=== PATIENT | female | born 1960 | race Caucasian/White ===

== ENCOUNTER 2016-03-28 23:49 | Observation (INO) ==
[2016-03-29] MEDS ORDERED: ONDANSETRON 4 MG/2 ML VIAL IV STA (00:35)
[2016-03-29] MEDS ORDERED: LEVOFLOXACIN INJ 750 MG in PREMIX 1 EACH IV STA (00:35)
[2016-03-29] MEDS ORDERED: SODIUM CHLORIDE 0.9% 1,000 ML IV STA (00:35)
[2016-03-29] MEDS ORDERED: PANTOPRAZOLE 40 MG VIAL IV STA (00:35)
[2016-03-29] MEDS ORDERED: PANTOPRAZOLE 40 MG VIAL IV ONE (00:46)
[2016-03-29] MEDS ORDERED: LEVOFLOXACIN INJ 150 ML IV ONE (00:46)
[2016-03-29] MEDS ORDERED: ONDANSETRON 4 MG/2 ML VIAL ONE ×3 (00:46→13:23)
[2016-03-29 00:51] LABS: Basophils % 0.5 % (0.0-0.8); Eosinophils # 0.1 10*3/uL (0.0-0.87); Eosinophils % 1.1 % (0.00-10.9); Hematocrit 41.5 VOL% (35.7-47.0); Hemoglobin 13.9 GM/DL (12.0-16.0); Immature Granulocytes % 0.2 %; Immature Granulocytes Absolute 0.02 #; Lymphocytes # 2.5 10*3/uL (1.4-4.0); Mean Corpuscular HGB Conc 33.5 GM/DL (32-36); Mean Corpuscular Hemoglobin 30 PG (27-34); Mean Corpuscular Volume 90.8 FL (87-102); Mean Platelet Volume 10.8 FL (9.6-12.0); Monocytes # 0.5 10*3/uL (0.11-0.8); Monocytes % 5.3 % (1.7-12.7); Neutrophils # 5.5 10*3/uL (1.4-7.4); Neutrophils % 63.9 % (38.7-73.9); Platelet Count 228 10*3/uL (130-400); Red Blood Count 4.57 10*6/uL (3.8-5.5); Red Cell Distribution Width 12.5 % (9.3-17.3); White Blood Count 8.5 10*3/uL (4.5-13.71)
[2016-03-29 01:08] LABS: Apearance,Urine Clear (Clear); Urine Color Yellow (Yellow)
[2016-03-29 01:09] LABS: Bilirubin,Urine 2+ mg/dL (Negative); Glucose,Urine (UA) Negative (Negative); Ketones,Urine 25 mg/dL (Negative); Nitrite,Urine Negative (Negative); Protein,Urine 30 MG/DL
[2016-03-29 01:10] LABS: Blood, Urine 50 mg/dL (Negative)
[2016-03-29 01:16] LABS: Alanine Aminotransferase 27 U/L (13-56); Albumin 4.3 G/DL (3.4-5.0); Alkaline Phosphatase 67 U/L (45-117); Amylase 107 U/L (25-115); Aspartate Amino Transferase 17 U/L (0-37); Bilirubin,Total < 0.39 MG/DL (0.2-1.0); Blood Urea Nitrogen 13 MG/DL (7-18); Calcium 9.4 MG/DL (8.5-10.1); Glucose 107 MG/DL (74-106); Osmolality,Calculated 287.7 MOS/KG (273-304); Sodium 145 MMOL/L (136-145); Total Protein 7.6 G/DL (6.4-8.3); Troponin I Only < 0.015 NG/ML (0.00-0.045)
--- NOTE | 2016-03-29 01:41 | Emergency Department Note ---
Arrival - Arrival ED Nursing Triage Note: pt presented to triage ambulatory with c/o intermittent N/V and RUQ pain x 2 weeks. pain worse at night. denies fever. Mode of Arrival: Ambulatory Limitations: No Limitations Source: Patient - History of Present Illness Onset (ago): week(s) (H presents to weeks post onset of symptoms) Date of Last Menstrual Period: menapause <Roman Lockwood - Last Filed: 03/29/16 01:39> <Angelique Le - Last Filed: 03/29/16 04:28> - Arrival Chief Complaint: Abdominal / Flank Pain Stated Complaint: stomach pain, and vomitting Time Seen by Provider: 03/29/16 00:35 - History of Present Illness HPI Narrative: This 56-year-old white female presents with a history of 2 weeks of recurrent nausea, vomiting, right upper quadrant pain, and midepigastric pain. She states the attacks are primarily at night and have not been associated with chills or fever. The patient denies any history of peptic ulcer disease, gallbladder disease, IBS, or pancreatitis. Currently she presents holding an emesis bag very nauseated. (Roman Lockwood) Allergies/Adverse Reactions: Allergies Allergy/AdvReac Type Severity Reaction Status Date / Time No Known Allergies Allergy Verified 03/29/16 00:16 Home Medications: Home Medications Medication Instructions Recorded Confirmed Type Celecoxib 50 tablet PO BEDTIME 11/06/15 03/29/16 History Citalopram [CeleXA] 1 tablet PO DAILY 11/06/15 03/29/16 History metFORMIN [Glucophage] 1,000 mg PO BID W/MEALS 11/06/15 03/29/16 History Review of System - Review of System 12 point system: reviewed and no additional remarkable complaints except as stated - Review of System Constitutional: Present: as per HPI Gastrointestinal: Present: as per HPI <Roman Lockwood - Last Filed: 03/29/16 01:39> Medical,Surgical,& Family Hx - Medical History Cardio: History of: Hypertension Neurology: History of: Cerebrovascular Accident (2016) Endocrine: History of: Diabetes Mellitus (NIDDM) Musculoskeletal: History of: Back/Neck Problems (herinated disc) - Surgical History HEENT Surgeries: Surgical HX of: Eye Surgery (RT & Lt EYE CATARACT SURGERY) Reproductive Surgeries: Surgical HX of;: Section - Social History Smoking Status: Current every day smoker Frequency of Alcohol Use: None Type of Drug Use: None <Roman Lockwood - Last Filed: 03/29/16 01:39> Exam <Roman Lockwood - Last Filed: 03/29/16 01:39> <Angelique Le - Last Filed: 03/29/16 04:28> Physical Examination: GENERAL: Well developed, well nourished white female holding an emesis bag in no acute distress. HEENT: Normocephalic. No trauma. Moist mucous membranes. EOMI. PERRLA. ENT clear NECK: Supple. No adenopathy. CARDIAC: Regular. No murmurs. Heart rate 100 CHEST: Clear to auscultation. No respiratory distress. O2 sat 99% ABDOMEN: Soft. Tender right upper quadrant and midepigastric areas. hypoactive Bowel sounds. EXTREMITIES: No trauma. Normal ROM. No pedal edema. SKIN: No diaphoresis. No rash. NEURO: Alert. Neuro intact. No focal deficits. (Roman Lockwood) Vital Signs: Vital Signs Temperature 98.3 F 03/29/16 00:09 Pulse Rate 100 H 03/29/16 00:09 Respiratory Rate 20 03/29/16 00:09 Blood Pressure 148/94 03/29/16 00:09 O2 Sat by Pulse Oximetry 99 03/29/16 00:09 (Roman Lockwood) (Angelique Le) Course <Roman Lockwood - Last Filed: 03/29/16 01:39> - Consultations Time: 04:27 <Angelique Le - Last Filed: 03/29/16 04:28> Course Narrative: discussed results with patient and Dr. Hewitt who is offering to admit her and do surgery today or see her Tuesday in the office - she will stay tonight. ( Angelique Le) - Consultations Consultation #1: Dr. Hewitt (Angelique Le) Results - Labs CBC & BMP: 03/29/16 00:33 03/29/16 00:33 <Roman Lockwood - Last Filed: 03/29/16 01:39> - Labs CBC & BMP: 03/29/16 00:33 03/29/16 00:33 - Diagnostic Findings Procedure: Ultrasound: report reviewed by me (acute cholecystits) <Angelique Le - Last Filed: 03/29/16 04:28> - Labs Labs: I have reviewed the laboratory noted the grossly normal results. I have likewise noted evidence of cystitis on urinalysis. (Roman Lockwood) Disposition <Roman Lockwood - Last Filed: 03/29/16 01:39> Case discussed with: patient, patient's family Time of Disposition: 04:28 <Angelique Le - Last Filed: 03/29/16 04:28> Clinical Impression: Acute cholecystitis Disposition: Still a Patient Condition: Stable
[2016-03-29] MEDS ORDERED: HYDROmorphone 2 MG/1 ML VIAL IV PRN (04:29)
[2016-03-29] MEDS ORDERED: ONDANSETRON 4 MG/2 ML VIAL IV PRN ×2 (04:29→13:40)
[2016-03-29] MEDS: SODIUM CHLORIDE 0.9% 1,000 ML IV SCH ×2 (05:30→13:36)
[2016-03-29] MEDS ORDERED: LACTATED RINGERS 1,000 ML IV SCH (06:00)
--- NOTE | 2016-03-29 06:34 | Ultrasound Report ---
Referring Physician: Roman Lockwood Exam: US abdomen limited Date: March 29, 2016 Reason: Right upper quadrant abdominal pain Comparison: Gallbladder ultrasound June 07, 2007 Preliminary report was provided by [facility]. Technique: Grayscale ultrasound images of the right upper quadrant were obtained. Ultrasound images were captured and stored. Findings: The liver measures 12.7 cm in length. The liver parenchyma is mildly echogenic and heterogeneous, suggesting mild fatty liver infiltration/hepatic steatosis. However, cirrhosis could have a similar appearance. No focal suspicious hepatic lesion is identified. There is echogenic material within the gallbladder, suggesting gallbladder sludge and stones. A stone at the gallbladder neck measures 1.5 cm. The gallbladder wall is also mildly prominent, and there may be trace pericholecystic fluid. The fabric machine operator reports a positive sonographic Souza's sign. These findings suggest acute cholecystitis. The common bile duct is normal in size, measuring 0.3-0.4 cm in diameter. The pancreas is largely obscured by bowel gas. The right kidney measures 11.2 x 4.1 x 4.0 cm. No right hydronephrosis or suspicious renal lesion is identified. No ascites is seen. Impression: 1. Gallbladder sludge and gallstones are present. There is also mild thickening of the gallbladder wall and possible trace pericholecystic fluid. In addition, the fabric machine operator reports a positive sonographic Souza's sign. These findings suggest acute cholecystitis. 2. The liver parenchyma is slightly echogenic and heterogeneous. This suggests mild fatty liver infiltration/hepatic steatosis, but cirrhosis could have a similar appearance. The ordering physician is aware of the findings. This is a critical test PROCEDURE INTERPRETED AT [facility] DEPARTMENT OF RADIOLOGY Final Report Signed by: Dr. Mo Francis
[2016-03-29] MEDS ORDERED: FAMOTIDINE 20 MG TABLET PO ONE (07:45)
--- NOTE | 2016-03-29 08:04 | EKG Report ---
Stationary ECG Study [facility] Test Date: 03/29/2016 8:02:57 AM Pat Name: DORIS NEAL Department: Room: 342 Gender: F [employer]: : 1960 Requested by: Stone Merino Order Number: [id number] Reading MD: ANETA GILLIS Intervals [place] Rate: 75 P: 63 AK: 165 QRS: 92 QRSD: 105 T: 55 QT: 393 QTc: 422 Interpretive Statements SINUS RHYTHM BORDERLINE RIGHT AXIS DEVIATION INCOMPLETE RIGHT BUNDLE BRANCH BLOCK Electronically Signed On 03-29-16 12:37:35 ROCKET ENGINE TESTER by ANETA GILLIS [email or web address]
[2016-03-29] MEDS ORDERED: LIDOCAINE 1%/EPI INJ 20 ML VIAL ONE (09:03)
[2016-03-29] MEDS ORDERED: TISSUE ADHESIVE 1 EACH APPLICATOR TOP ONE (09:03)
--- NOTE | 2016-03-29 11:43 | General Surg History&Physical ---
Assessment and Plan (1) Acute cholecystitis Status: Acute Assessment and plan: This patient has acute cholecystitis. I recommended laparoscopic cholecystectomy. She has no indications for a selective cholangiogram. I have discussed the risks, benefits, and alternatives of the operation with the patient, and expected outcomes have been reviewed. The patient would like to proceed with the operation. This note reflects in a counter had with the patient at 8 a.m. on 03/29/2016. Current Visit: Yes History of Present Illness Chief complaint: abdominal pain History of present illness: Ms. Kyle is a 56 year old female who was admitted to the hospital with 2 weeks of worsening right upper quadrant pain that radiates through to the back but acutely worsened last night around 11 p.m. She presented to the ER with nausea and vomiting as well and was diagnosed with cholecystitis based on her symptoms and her time of duration of symptoms as well as imaging findings. She had ultrasound that showed wall thickening with normal size, bile duct and her labs were normal. Home Medications Medication Instructions Recorded Confirmed Type Celecoxib 50 tablet PO BEDTIME 11/06/15 03/29/16 History Citalopram [CeleXA] 1 tablet PO DAILY 11/06/15 03/29/16 History metFORMIN [Glucophage] 1,000 mg PO BID W/MEALS 11/06/15 03/29/16 History Allergies Allergy/AdvReac Type Severity Reaction Status Date / Time No Known Allergies Allergy Verified 03/29/16 00:16 Medical,Surgical,& Family Hx - Medical History Cardio: History of: Hypertension Neurology: History of: Cerebrovascular Accident (2016) Endocrine: History of: Diabetes Mellitus (NIDDM) Gastrointestinal: History of: GI Problems (current abdominal pain) Musculoskeletal: History of: Back/Neck Problems (herniated disc) Hematology: History of: Anemia - Surgical History HEENT Surgeries: Surgical HX of: Eye Surgery (RT & Lt EYE CATARACT SURGERY) Reproductive Surgeries: Surgical HX of;: Section (twice) - Family History Family History: Reports;: Family Cancer (mother), Family Diabetes (sister, grandfather), Family Hypertension ("whole family"), Family Stroke (grandmother) - Social History Smoking Status: Current every day smoker Frequency of Alcohol Use: None Type of Drug Use: None Exam - Constitutional Vitals: Period Temp Pulse Resp BP Sys/[place] Pulse Ox Last 24 Hr 97.0 F-98.4 F 78-94 18-20 123-163/71-82 96-98 General appearance: no acute distress, over weight - Head Head exam: Present: normal inspection, normocephalic - Eye Eye exam: Present: EOMI. Absent: scleral icterus Pupils: Present: ANCELMO - ENT ENT exam: Present: normal exam Mouth exam: Present: normal external inspection, normal voice - Neck Neck exam: Present: normal inspection, trachea midline - Respiratory Respiratory exam: Present: clear to auscultation bilaterally. Absent: accessory muscle use, chest wall tenderness - Cardiovascular Cardiovascular exam: Present: RRR. Absent: systolic murmur, tachycardia - GI/Abdominal GI/Abdominal exam: Present: Souza's sign, soft. Absent: tenderness, rebound - Extremities Exam Extremities exam: Present: normal inspection, normal capillary refill - Back Exam Back exam: Present: normal inspection - Neurological Exam Neurological exam: Present: alert, oriented X3 Speech: Present: normal - Skin Skin exam: Present: normal color, warm - Constitutional Constitutional: Present: as per HPI - EENT Nose, mouth and throat: Present: as per HPI - Cardiovascular Cardiovascular: Present: as per HPI - Respiratory Respiratory: Present: as per HPI - Gastrointestinal Gastrointestinal: Present: as per HPI - Genitourinary Genitourinary: Present: as per HPI - Musculoskeletal Musculoskeletal: Present: as per HPI - Neurological Neurological: Present: as per HPI - Endocrine Endocrine: Present: as per HPI Hematologic/Lymphatic: Present: as per HPI Quality Measures - Stroke Onset of Symptoms Date: 10/29/14 Results - Labs CBC & BMP: 03/29/16 00:33 03/29/16 00:33 - Diagnostic Findings Procedure: Ultrasound: report reviewed by me
[2016-03-29] MEDS ORDERED: ROPIVACAINE 0.5% 30 ML VIAL ONE (12:32)
[2016-03-29] MEDS ORDERED: DEXTROSE 50% 25 GM/50 ML VIAL IV PRN (12:40)
[2016-03-29] MEDS ORDERED: PROMETHAZINE 25 MG/1 ML VIAL IM PRN (12:40)
[2016-03-29] MEDS ORDERED: GLUCAGON 1 MG VIAL IM PRN (12:40)
--- NOTE | 2016-03-29 12:41 | Operative Note ---
Date of procedure: 03/29/16 Pre-op diagnosis: acute cholecystitis Post-op diagnosis: same Procedure: Preoperative diagnosis Acute cholecystitis Postoperative diagnosis Same Procedures performed Laparoscopic cholecystectomy Findings Acute inflammation the gallbladder was present. The critical view of safety was obtained prior clips on the cystic duct and cystic artery. Complications None apparent Specimens Gallbladder Anesthesia GETA Blood loss 10 mL Indications Acute cholecystitis. No indications for a selective cholangiogram. Description of procedure The patient was taken to the operating room and transferred to the operating table in the supine position. Pressure points were padded and SCDs were placed bilateral lower extremities. General endotracheal anesthesia was administered. The abdomen was prepped chlorhexidine and draped sterilely. Preoperative antibiotics were administered, and a timeout was performed. The abdomen was entered in a supraumbilical location of the Veress needle. A 5 mm skin incision was made after local anesthetic was administered and a penetrating towel clip was used to grasp the umbilical stalk. A Veress needle was used to enter the peritoneal cavity and aspiration was negative. Saline drop test confirmed intracranial location. The abdomen was insufflated to 15 mmHg with an initial insufflation pressure of 5 mmHg. The Veress needle was removed and a 5 mm trocar was placed blindly. Laparoscopy was performed. There is no evidence of Veress needle or trocar injury. The patient was placed in reverse Trendelenburg and left side rolled up position. After local anesthetic was administered, an 11 mm midepigastric trocar and 2 right subcostal 5 mm trochars were placed. The gallbladder was grasped at the fundus and infundibulum after the patient was placed in reverse Trendelenburg and left side rolled up position. There was acute inflammation of the gallbladder and there is a stone at the neck of the gallbladder that was palpated and seen laparoscopically. The cystic plate peritoneum was dissected until the critical view of safety was obtained. The cystic duct and cystic artery were clipped twice centrally and once laterally and divided laparoscopically with scissors between clips. The gallbladder was removed in the gallbladder fossa using the hook electrocautery. The gallbladder was placed in a retrieval bag and removed through the midepigastric trocar with no significant fascial extension. There is a small amount of bleeding from the liver bed and a piece of Surgicel was placed bleeding stopped with minimal pressure held. The abdomen was suction irrigated locally and the area was reinspected and was hemostatic with decreased insufflation. The abdomen was then evacuated of all CO2 and the trochars were removed. The skin incisions are closed with 4-0 Monocryl sterile skin glue was placed. The patient was awakened from anesthesia and transferred to recovery. Postoperative plan Reason diet and discharge planning Anesthesia: IVIS, local Surgeon / Physician: Mark Hewitt Estimated blood loss: minimal (10 mL) Specimens: other (gallbladder) Condition: stable Disposition: PACU Results - Labs CBC & BMP: 03/29/16 00:33 03/29/16 00:33 Discharge Plan - Discharge Medications No Action Citalopram [CeleXA] 1 tablet PO DAILY metFORMIN [Glucophage] 1,000 mg PO BID W/MEALS Celecoxib 50 tablet PO BEDTIME - Follow Up or Referral - Forms/Instructions
[2016-03-29] MEDS ORDERED: PROPOFOL 200 MG/20 ML VIAL IV ONE (13:19)
[2016-03-29] MEDS ORDERED: SEVOFLURANE 1 UNIT/15 MINUTE INH ONE (13:20)
[2016-03-29] MEDS ORDERED: ACETAMINOPHEN 1,000 MG/100 ML VIAL IV ONE (13:21)
[2016-03-29] MEDS ORDERED: GLYCOPYRROLATE 0.4 MG/2 ML VIAL ONE (13:21)
[2016-03-29] MEDS ORDERED: NEOSTIGMINE 10 MG/10 ML VIAL ONE (13:21)
[2016-03-29] MEDS ORDERED: MIDAZOLAM 2 MG/2 ML VIAL ONE (13:21)
[2016-03-29] MEDS ORDERED: LACTATED RINGERS 1,000 ML IV ONE (13:22)
[2016-03-29] MEDS ORDERED: ROCURONIUM 100 MG/10 ML VIAL IV ONE (13:22)
[2016-03-29] MEDS ORDERED: HYDROmorphone 2 MG/1 ML VIAL ONE (13:23)
[2016-03-29] MEDS: HYDROmorphone 2 MG/1 ML VIAL IV PRN ×5 (13:26→20:56)
--- NOTE | 2016-03-29 13:32 | Anesthesia ---
Anesthesia Post OP - Post Ansesthetic Evaluation Patient seen in post op: Yes Resp: within normal limits CV: within normal limits Mental: within normal limits Temp: within normal limits [id number]: within normal limits Nausea and Vomiting: within normal limits Pain: within normal limits
[2016-03-29] MEDS: ONDANSETRON 4 MG/2 ML VIAL IV PRN ×2 (15:03→20:56)
[2016-03-29] MEDS: LACTATED RINGERS 1,000 ML IV SCH ×2 (15:03→20:54)
[2016-03-29] MEDS: INSULIN REGULAR 100 UNIT/ML SUBCUT SCH ×2 (16:44→23:06)
[2016-03-30] MEDS: ONDANSETRON 4 MG/2 ML VIAL IV PRN (02:46)
[2016-03-30] MEDS: HYDROmorphone 2 MG/1 ML VIAL IV PRN (02:51)
[2016-03-30 05:41] LABS: Hematocrit 36.3 VOL% (35.7-47.0)
[2016-03-30 05:50] LABS: Hemoglobin 11.6 GM/DL (12.0-16.0)
[2016-03-30] MEDS: ENOXAPARIN 40 MG/0.4 ML SYRINGE SUBCUT SCH (06:58)
[2016-03-30] MEDS: LACTATED RINGERS 1,000 ML IV SCH ×2 (08:04→12:10)
[2016-03-30] MEDS: INSULIN REGULAR 100 UNIT/ML SUBCUT SCH ×4 (08:49→22:26)
[2016-03-30] MEDS: CITALOPRAM 20 MG TABLET PO SCH (09:32)
--- NOTE | 2016-03-30 11:30 | Event Note ---
General Surgery Progress Note Chief complaint This patient is a 56-year-old woman who is admitted with acute cholecystitis treated with laparoscopic cholecystectomy on 03/29/2016 Interval history The patient had a bad night last night with bad nausea and abdominal pain and the extraction site in the midepigastrium. She has not been able to keep any food down yet. Physical exam Afebrile with normal vital signs Abdominal exam is expected postoperative tenderness Labs Hemoglobin 11.3 Assessment and plan We will increased the nausea regimen and try to get the patient tolerated some oral [place]. Continue current pain regimen Increase activity and out of bed in the hallway Repeat labs tomorrow and continue IV fluids for now
--- NOTE | 2016-03-30 11:49 | Pathology Report from [facility] ---
ACCESSION # : [id number] PATIENT NAME : Doris Kyle ORDERING DR : Mark Hewitt MD CLINICAL HX: Acute cholecystitis POST-OP DX: Same SPECIMEN INFO: Gallbladder GROSS DESCRIPTION: The specimen is received in formalin labeled with the patient 's name and consists of an intact gallbladder measuring 7.0 x 3.0 cm. The serosa is smooth, shields-pink. The wall averages 0.3 cm in thickness. The serosa is smooth, pink-[place]ri[place]. The lumen contains brown mucoid bile with a few brown black stones seen measuring up to 1.5 cm. Pin Maker sections submitted in one cassette. DIAGNOSIS FOR DORIS KYLE: GALLBLADDER: Chronic cholecystitis. Cholelithiasis. No evidence of malignancy. SERVICE DATE: 03/29/2016 REPORT DATE: 03/30/2016 PATHOLOGIST: Tisha Duncan III, M.D. MTDD
[2016-03-31] MEDS: LACTATED RINGERS 1,000 ML IV SCH ×2 (03:12→06:18)
[2016-03-31 04:38] LABS: Basophils % 0.2 % (0.0-0.8); Eosinophils % 0.6 % (0.00-10.9); Hematocrit 35.1 VOL% (35.7-47.0); Hemoglobin 11.7 GM/DL (12.0-16.0); Immature Granulocytes % 0.2 %; Immature Granulocytes Absolute 0.01 #; Lymphocytes # 2.2 10*3/uL (1.4-4.0); Lymphocytes % 42.4 % (21.3-54.2); Mean Corpuscular HGB Conc 33.3 GM/DL (32-36); Mean Corpuscular Hemoglobin 30 PG (27-34); Mean Corpuscular Volume 91.2 FL (87-102); Mean Platelet Volume 11.1 FL (9.6-12.0); Monocytes # 0.3 10*3/uL (0.11-0.8); Neutrophils # 2.6 10*3/uL (1.4-7.4); Neutrophils % 50.6 % (38.7-73.9); Platelet Count 165 T/CUMM (130-400); Red Blood Count 3.85 MC/CUMM (3.8-5.5); Red Cell Distribution Width 12.8 % (9.3-17.3); White Blood Count 5.2 T/CUMM (4-12)
[2016-03-31 05:13] LABS: Albumin 3.2 G/DL (3.4-5.0); Bilirubin,Total 0.6 MG/DL (0.2-1.0); Calcium 8.7 MG/DL (8.5-10.1); Osmolality,Calculated 286.6 MOS/KG (273-304); Potassium 3.6 MMOL/L (3.5-5.1); Total Protein 5.7 G/DL (6.4-8.3)
[2016-03-31] MEDS: ENOXAPARIN 40 MG/0.4 ML SYRINGE SUBCUT SCH (06:16)
--- NOTE | 2016-03-31 07:23 | Discharge Summary ---
Hospital Course - Hospital Course Hospital Course: This patient was admitted with acute cholecystitis through the ER and she was taken to the operating room on 03/29/2016 for laparoscopic cholecystectomy. She did well postoperatively but was kept 1 extra day due to some fairly severe nausea and pain. Her labs were rechecked and everything appeared stable. She was discharged home on postoperative day 2 in good condition. She was tolerating her diet and her pain was well-controlled. I'll see her back in 2 weeks in clinic. Diagnosis - Discharge Diagnosis (1) Acute cholecystitis Status: Acute Specialty Discharge - Follow Up or Referrals Follow up with: Mark Hewitt MD [Physician] - 2 Weeks Discharge Plan - Discharge Data Disposition: Disch To Home/Self Care Condition at Discharge: Stable Discharge Diet: advance to your usual diet Activity: no lifting Hygiene: may shower Weight Bearing at Discharge: weight bear as tolerated Driving: not until seen by doctor Contact your physician if you experience:: fever over 101, Difficulty voiding, Redness or swelling, Nausea/Vomiting, Shortness of breath, Bleeding, pain uncontrolled by pain medications - Discharge Medications New HYDROcodone/ACETAMIN 7.5-325 [[place] 7.5-325] 1 tablet PO Q4H PRN #45 tablet PRN Reason: Pain Moderate (4-7) Continue Citalopram [CeleXA] 1 tablet PO DAILY Discontinued metFORMIN [Glucophage] 1,000 mg PO BID W/MEALS Celecoxib 50 tablet PO BEDTIME - Follow Up or Referral Follow Up: Mark Hewitt MD [Physician] - 2 Weeks - Forms/Instructions Instructions: Laparoscopic Cholecystectomy (DC) Exam - Constitutional Vitals: Period Temp Pulse Resp BP Sys/[place] Pulse Ox Last 24 Hr 97.7 F-99.1 F 88-108 17-19 140-163/67-84 93-97 General appearance: no acute distress, over weight - Head Head exam: Present: normal inspection, normocephalic - Eye Eye exam: Present: EOMI. Absent: conjunctival injection Pupils: Present: ANCELMO - ENT ENT exam: Present: normal exam - Neck Neck exam: Present: normal inspection - Respiratory Respiratory exam: Present: clear to auscultation bilaterally. Absent: accessory muscle use, chest wall tenderness - Cardiovascular Cardiovascular exam: Present: regular rate and rhythm. Absent: systolic murmur , tachycardia - GI/Abdominal GI/Abdominal exam: Present: tenderness (appropriate post-operative tenderness on exam), soft - Extremities Exam Extremities exam: Present: normal inspection, normal capillary refill - Back Exam Back exam: Present: normal inspection - Neurological Exam Neurological exam: Present: alert, oriented X3 - Psychiatric Psychiatric exam: Present: normal affect, normal mood - Skin Skin exam: Present: normal color, warm Discharge Results Labs on day of discharge: Labs from last 24 hours 03/31/16 03/31/16 03/30/16 03:48 03:48 08:47 WBC 5.2 D RBC 3.85 Hgb 11.7 L Hct 35.1 L MCV 91.2 MCH 30 MCHC 33.3 RDW 12.8 Plt Count 165 D MPV 11.1 Neut % (Auto) 50.6 Lymph % (Auto) 42.4 [place] % (Auto) 6.0 Eos % (Auto) 0.6 Baso % (Auto) 0.2 Neut # (Auto) 2.6 Lymph # (Auto) 2.2 [place] # (Auto) 0.3 Eos # (Auto) 0.0 Baso # (Auto) 0.0 Immature Gran % 0.2 Nucleated RBC % 0.0 Immature Gran # 0.01 Nucleated RBCs # 0.00 Sodium 146 H Potassium 3.6 Chloride 108 H Carbon Dioxide 28 Anion Gap 13.6 BUN 4 L Creatinine 0.70 GFR Calculation 103 BUN/Creatinine Ratio 5.00 L Glucose 91 POC Glucose 98 Calculated Osmolality 286.6 Calcium 8.7 Total Bilirubin 0.60 AST 24 ALT 35 Alkaline Phosphatase 59 Total Protein 5.7 L Albumin 3.2 L Globulin 2.5 Albumin/Globulin Ratio 1.2 Preliminary micro results at discharge 03/29/16 Unknown Urine Culture - Preliminary Urine,Voided No Growth at 24 hours. DS: Provider Date of admission: 03/29/16 04:28 Primary care physician: Martin Cristobal MD Attending physician on admission: Mark Hewitt MD Consults: 03/29/16 12:45 Consult to Pharmacy [CONS] Routine Reason for Pharmacy Consult: Adjust Meds Renal Funct Discharging clinician: Mark Hewitt MD Expected date of discharge: 03/31/16
[2016-03-31] MEDS: INSULIN REGULAR 100 UNIT/ML SUBCUT SCH (08:12)
[2016-03-31 08:31] VITALS: BP 135/83
[2016-03-31] MEDS: CITALOPRAM 20 MG TABLET PO SCH (09:37)
== END 2016-03-31 10:30 | disposition home or self-care (01) ==
LOC: N.EDINP 23:49 → N.ED 23:49 → N.3E 03-29 04:53
PROVIDERS: ADMIT Surgery; ATTEND Surgery
PROC: LAPCHOL (2016-03-29 11:31)